=== PATIENT | male | born 1985 | race African-American/Black ===

== ENCOUNTER 2016-08-18 18:32 | Emergency (ER) | payer BC ==
--- NOTE | 2016-08-19 13:49 | ER ---
ADMIT: 08/18/2016 RM/LOC: ER [facility] MR#: [id number] [facility] [address], [place] [address] ADRIANNE RON [address] [facility] [address] [place] [address] Emergency Room Report SEX: M AGE: 30 : 1985 DATE: 08/18/2016 TIME: 1832. PRIMARY CARE: . Please refer to my T-sheet for complete H and P. SUBJECTIVE: The patient is a 30-year-old, who comes with nausea, vomiting, and diarrhea. It has been there for about 20 hours. He missed work yesterday. No fevers. No other complaints. He says he has vomited maybe 5 to 6 times, diarrhea 7 to 8 times. No blood in his stools. No travel history. No antibiotics. PHYSICAL EXAMINATION: VITAL SIGNS: His blood pressure is 120/75, pulse 105, respirations 16, temperature 98.6, sat 95%. GENERAL: He is in no acute distress. HEENT: Grossly normal. Mucous members are moist. LUNGS: Clear. HEART: Regular. ABDOMEN: Soft. SKIN: No rash. EMERGENCY DEPARTMENT COURSE: I gave him a dose of Phenergan 25 p.o., he was ready for discharge. ASSESSMENT: Acute nausea, vomiting, and diarrhea. The patient is very hydrated on exam. PLAN: Push fluids. Phenergan 25. I gave him script 50, return if worse. Follow up with me next week if not improving. René Gomez MD/ ho JOB #: [id number] CC: Artie Fang MD, Attending Physician Raoul Lopez MD, Family Physician
== END 2016-08-18 19:35 | disposition home or self-care (01) ==
LOC: ER 18:32
DX: R11.2 Nausea with vomiting, unspecified (principal); R19.7 Diarrhea, unspecified

== ENCOUNTER 2016-09-09 16:02 | Emergency (ER) | payer BC ==
--- NOTE | 2016-10-02 21:31 | ER ---
ADMIT: 09/09/2016 RM/LOC: ER [facility] MR#: [id number] [facility] [address] ADRIANNE ORN [address] [facility] [address] [place] [address] Emergency Room Report SEX: M AGE: 30 : 1985 DATE: 09/09/2016 HISTORY OF PRESENT ILLNESS: A 30-year-old comes to the Emergency Department with complaints of itching all over. Apparently been seen in urgent Care earlier today and was diagnosed with hives. Given an injection of for his hives. States the itching is still just a severe. See T-sheet for history and physical. DIAGNOSIS: Pruritus. Given a prescription for hydroxyzine. Encouraged to follow up with his primary doctor if not better in 2-3 days. Artie Fang MD/ ho JOB #: [id number] CC: Artie Fang MD, Attending Physician Randall Natarajan MD, Family Physician
== END 2016-09-09 16:25 | disposition home or self-care (01) ==
LOC: ER 16:02
DX: L29.9 Pruritus, unspecified (principal)